=== PATIENT | male | born 1995 | race Caucasian/White ===

== ENCOUNTER 2023-09-06 20:39 | Emergency (ER) | payer MEDICARE, MEDICAID ==
[2023-09-06] MEDS ORDERED: Albuterol/Ipratropium 3.0-0.5 MG/3 ML Neb Soln NEB ONE (21:26)
[2023-09-06 21:27] LABS: BASOPHILS ABSOLUTE AUTO 0.1 K/mm3 (0.0-0.2); BASOPHILS PERCENT AUTO 0.3 % (0.0-1.0); EOSINOPHILS PERCENT AUTO 0.1 % (0.0-6.0); HEMATOCRIT 50.8 % (42.0-52.0); HEMOGLOBIN 17.6 gm/dl (14.0-18.0); IMMATURE GRAN ABSOLUTE AUTO 0.14 K/mm3 (0.00-0.05); IMMATURE GRAN PERCENT AUTO 0.8 % (0.0-0.4); LYMPHOCYTES ABSOLUTE AUTO 1.7 K/mm3 (1.0-4.8); LYMPHOCYTES PERCENT AUTO 9.3 % (24.0-44.0); MEAN CORPUSCULAR HEMOGLOBIN 29.4 pg (28.0-32.0); MEAN CORPUSCULAR HGB CONC 34.6 g/dl (32.0-36.0); MEAN CORPUSCULAR VOLUME 84.8 fl (83.0-99.0); MEAN PLATELET VOLUME 8.9 fl (9.4-12.4); MONOCYTES ABSOLUTE AUTO 1.4 K/mm3 (0.0-0.8); MONOCYTES PERCENT AUTO 7.4 % (0.0-8.0); NEUTROPHILS ABSOLUTE AUTO 15.3 K/mm3 (1.8-7.7); NEUTROPHILS PERCENT AUTO 82.1 % (41.0-71.0); PLATELET COUNT,PLT 314 K/mm3 (150-400); RED BLOOD CELL COUNT 5.99 M/mm3 (4.52-5.90); WHITE BLOOD CELL COUNT,WBC 18.63 K/mm3 (3.9-11.3)
[2023-09-06] MEDS ORDERED: levETIRAcetam 1,000 MG in Sodium Chloride 0.9% 100 ML IV ONE (21:29)
[2023-09-06] MEDS ORDERED: LORazepam 2 MG/ML SDV IVPUSH ONE (21:29)
[2023-09-06] MEDS ORDERED: Sodium Chloride 0.9% 1,000 ML IV SCH (21:30)
[2023-09-06 21:48] LABS: A/G RATIO 1.2 (1-2); ALBUMIN 4.6 g/dl (3.4-5.0); ANION GAP 19.5 (5-15); BILIRUBIN TOTAL 0.9 mg/dL (0.2-1.0); BUN/CREATININE RATIO 12.7 (14-18); CREATININE 1.1 mg/dL (0.7-1.3); EST CRCL DRUG DOSING (CG) 104.15 mL/min; POTASSIUM,K 4.5 mEq/L (3.5-5.1); PROTEIN TOTAL,TP 8.3 g/dl (6.4-8.2)
[2023-09-06 21:50] LABS: LACTIC ACID 1.1 mmol/L (0.4-2.0)
[2023-09-06] MEDS ORDERED: Albuterol 6.7 GM Inhaler INH ONE (22:39)
[2023-09-06 23:01] VITALS: BP 129/70
[2023-09-06 23:26] LABS: APPEARANCE,URINE CLEAR (Clear); BILIRUBIN,URINE NEGATIVE (Negative); COLOR,URINE YELLOW (Yellow); GLUCOSE,URINE NEGATIVE (Negative); KETONES,URINE 4+ (Negative); LEUKOCYTE ESTERASE,URINE NEGATIVE (Negative); NITRITE,URINE NEGATIVE (Negative); OCCULT BLOOD,URINE TRACE-INTACT (Negative); PROTEIN,URINE 1+ (Negative); UROBILINOGEN,URINE 0.2 (0.2-1.0)
[2023-09-06 23:35] LABS: BARBITURATE SCREEN,URINE NEGATIVE (CUTOFF=200); BENZODIAZEPINES SCREEN,URINE NEGATIVE (CUTOFF=150); BUPRENORPHINE SCREEN,URINE NEGATIVE (CUTOFF=10); METHADONE SCREEN, URINE NEGATIVE (CUT0FF=200); METHAMPHETAMINES SCREEN, URINE NEGATIVE (CUTOFF=500); OXYCODONE SCREEN,URINE NEGATIVE (CUT0FF=100); THC SCREEN,URINE 20 NG/ML PRESUMPTIVE POSITIVE (CUTOFF=50)
[2023-09-06 23:43] LABS: AMPHETAMINES SCREEN, URINE NEGATIVE (CUTOFF=500)
[2023-09-06 23:51] LABS: BACTERIA,URINE FEW /hpf (FEW); EPITHELIAL CELLS,URINE 0-5 /hpf (0-5); MUCUS,URINE FEW /hpf (FEW); RBC,URINE 0-5 /hpf (0-5); WBC,URINE 0-5 /hpf (0-5)
[2023-09-07 00:14] VITALS: PULSE 99
== END 2023-09-07 00:02 | disposition home or self-care (01) ==
LOC: JD.ED 20:39
DX: R56.9 Unspecified convulsions (principal); E86.0 Dehydration; Z91.011 Allergy to milk products
CPT/HCPCS: 36415; 70450; 71046; 80053; 80306; 80307; 81001; 82550; 83605; 83735; 85025; 93005; 94640; 96361; 96374; 96375; 99285; A9270; J1953; J2060; J3490; J7030; 99284; J7620-GY

== ENCOUNTER 2024-08-02 12:42 | Emergency (ER) | payer MEDICARE, MEDICAID ==
[2024-08-02 13:08] VITALS: PULSE 96
[2024-08-02 13:56] LABS: BASOPHILS ABSOLUTE AUTO 0.1 K/mm3 (0.0-0.2); BASOPHILS PERCENT AUTO 0.3 % (0.0-1.0); EOSINOPHILS PERCENT AUTO 0.2 % (0.0-6.0); HEMOGLOBIN 16.3 gm/dl (14.0-18.0); IMMATURE GRAN PERCENT AUTO 0.6 % (0.0-0.4); LYMPHOCYTES ABSOLUTE AUTO 1.7 K/mm3 (1.0-4.8); LYMPHOCYTES PERCENT AUTO 9.9 % (24.0-44.0); MEAN CORPUSCULAR HEMOGLOBIN 29.7 pg (28.0-32.0); MEAN CORPUSCULAR VOLUME 87.4 fl (83.0-99.0); MEAN PLATELET VOLUME 9.1 fl (9.4-12.4); MONOCYTES ABSOLUTE AUTO 1.8 K/mm3 (0.0-0.8); MONOCYTES PERCENT AUTO 10.5 % (0.0-8.0); NEUTROPHILS ABSOLUTE AUTO 13.3 K/mm3 (1.8-7.7); NEUTROPHILS PERCENT AUTO 78.5 % (41.0-71.0); PLATELET COUNT,PLT 280 K/mm3 (150-400); RED BLOOD CELL COUNT 5.49 M/mm3 (4.52-5.90); WHITE BLOOD CELL COUNT,WBC 16.93 K/mm3 (3.9-11.3)
[2024-08-02] MEDS: Sodium Chloride 0.9% 10 ML Syringe FLUSH PRN (14:03)
[2024-08-02] MEDS: Sodium Chloride 0.9% 1,000 ML IV SCH (14:03)
[2024-08-02 14:15] LABS: SLIDE REVIEW ABNORMAL SMEAR
[2024-08-02 14:37] LABS: A/G RATIO 1.2 (1-2); ALBUMIN 4.2 g/dl (3.4-5.0); ANION GAP 16.1 (5-15); C-REACTIVE PROTEIN 3.18 mg/dL (<0.30); CALCIUM 9.4 mg/dL (8.5-10.1); EST CRCL DRUG DOSING (CG) 115.16 mL/min; POTASSIUM,K 4.1 mEq/L (3.5-5.1); PROTEIN TOTAL,TP 7.6 g/dl (6.4-8.2); VALPROIC ACID 3.3 ug/mL (50.0-100.0)
[2024-08-02 15:48] LABS: CORONAVIRUS COVID-19 NAA NEGATIVE (NEGATIVE); INFLUENZA A NAA NEGATIVE (NEGATIVE); RESPIRATORY SYNCYTIAL VIR NAA NEGATIVE (NEGATIVE)
[2024-08-02 16:43] VITALS: BP 111/81
[2024-08-05 14:46] LABS: ZONISAMIDE 4 ug/mL (10-40)
== END 2024-08-02 16:16 | disposition home or self-care (01) ==
LOC: JD.ED 12:42
DX: R56.9 Unspecified convulsions (principal); Z91.011 Allergy to milk products
CPT/HCPCS: 0241U; 36415; 71045; 80053; 80164; 80203; 82140; 82550; 83605; 85025; 86140; 96360; 96361; 99284; J3490; J7030; 99283

== ENCOUNTER 2024-11-10 10:33 | Emergency (ER) | payer MEDICARE, MEDICAID ==
[2024-11-10] MEDS ORDERED: Sodium Chloride 0.9% 10 ML Syringe FLUSH PRN (10:37)
[2024-11-10] MEDS: LORazepam 2 MG/ML SDV IVPUSH ONE (10:47)
[2024-11-10] MEDS: Sodium Chloride 0.9% 1,000 ML IV SCH (11:04)
[2024-11-10] MEDS: LORazepam 2 MG/ML SDV ONE (11:10)
[2024-11-10 11:24] LABS: BASOPHILS ABSOLUTE AUTO 0.1 K/mm3 (0.0-0.2); BASOPHILS PERCENT AUTO 0.8 % (0.0-1.0); EOSINOPHILS ABSOLUTE AUTO 0.1 K/mm3 (0.0-0.4); EOSINOPHILS PERCENT AUTO 0.6 % (0.0-6.0); HEMATOCRIT 50.8 % (42.0-52.0); HEMOGLOBIN 16.8 gm/dl (14.0-18.0); IMMATURE GRAN ABSOLUTE AUTO 0.48 K/mm3 (0.00-0.05); IMMATURE GRAN PERCENT AUTO 3.1 % (0.0-0.4); LYMPHOCYTES ABSOLUTE AUTO 3.1 K/mm3 (1.0-4.8); LYMPHOCYTES PERCENT AUTO 19.9 % (24.0-44.0); MEAN CORPUSCULAR HEMOGLOBIN 28.6 pg (28.0-32.0); MEAN CORPUSCULAR HGB CONC 33.1 g/dl (32.0-36.0); MEAN CORPUSCULAR VOLUME 86.4 fl (83.0-99.0); MEAN PLATELET VOLUME 9.4 fl (9.4-12.4); MONOCYTES ABSOLUTE AUTO 0.9 K/mm3 (0.0-0.8); MONOCYTES PERCENT AUTO 5.5 % (0.0-8.0); NEUTROPHILS ABSOLUTE AUTO 10.8 K/mm3 (1.8-7.7); NEUTROPHILS PERCENT AUTO 70.1 % (41.0-71.0); PLATELET COUNT,PLT 309 K/mm3 (150-400); RED BLOOD CELL COUNT 5.88 M/mm3 (4.52-5.90); WHITE BLOOD CELL COUNT,WBC 15.34 K/mm3 (3.9-11.3)
[2024-11-10 11:42] LABS: A/G RATIO 1.1 (1-2); ALANINE AMINOTRANSFERASE,ALT 66 U/L (16-63); ALKALINE PHOSPHATASE 46 U/L (46-116); ANION GAP 22.3 (5-15); ASPARTATE AMNIOTRANSFERASE,AST 41 U/L (15-37); BILIRUBIN TOTAL 0.3 mg/dL (0.2-1.0); BLOOD UREA NITROGEN,BUN 13 mg/dL (7-18); BUN/CREATININE RATIO 10.8 (14-18); CALCIUM 8.8 mg/dL (8.5-10.1); CARBON DIOXIDE,CO2 17 mEq/L (21-32); CHLORIDE,CL 102 mEq/L (98-107); CREATININE 1.2 mg/dL (0.7-1.3); ESTIMATED GFR 84 mL/min (>60); GLUCOSE RANDOM 137 mg/dL (70-99); MAGNESIUM 2.8 mg/dL (1.8-2.4); PROTEIN TOTAL,TP 7.5 g/dl (6.4-8.2); SODIUM,NA 137 mEq/L (136-145)
[2024-11-10 11:48] LABS: POTASSIUM,K 4.3 mEq/L (3.5-5.1)
[2024-11-10] MEDS: Acetaminophen 325 MG Tab PO ONE (14:50)
[2024-11-10 16:28] VITALS: BP 126/78; PULSE 108
[2024-11-12 14:41] LABS: ZONISAMIDE <2 ug/mL (10-40)
== END 2024-11-10 14:55 | disposition home or self-care (01) ==
LOC: JD.ED 10:33
DX: R56.9 Unspecified convulsions (principal); S01.21XA Laceration without foreign body of nose, initial encounter; S01.81XA Laceration without foreign body of other part of head, initial encounter; F17.210 Nicotine dependence, cigarettes, uncomplicated; Z79.899 Other long term (current) drug therapy; Z91.011 Allergy to milk products; W01.198A Fall on same level from slipping, tripping and stumbling with subsequent striking against other object, initial encounter
CPT/HCPCS: 12011; 36415; 70450; 70486; 72125; 80053; 80164; 80203; 83735; 85025; 93005; 96361; 96374; 99285; A9270; J2060; J7030; 93010; 99284

== ENCOUNTER 2024-12-12 18:24 | Emergency (ER) | payer MEDICARE ==
[2024-12-12 18:44] VITALS: BP 133/71; PULSE 104
[2024-12-12 19:00] LABS: BASOPHILS ABSOLUTE AUTO 0.1 K/mm3 (0.0-0.2); BASOPHILS PERCENT AUTO 0.3 % (0.0-1.0); EOSINOPHILS ABSOLUTE AUTO 0.1 K/mm3 (0.0-0.4); EOSINOPHILS PERCENT AUTO 0.5 % (0.0-6.0); HEMATOCRIT 52.4 % (42.0-52.0); HEMOGLOBIN 17.7 gm/dl (14.0-18.0); IMMATURE GRAN ABSOLUTE AUTO 0.49 K/mm3 (0.00-0.05); IMMATURE GRAN PERCENT AUTO 2.1 % (0.0-0.4); LYMPHOCYTES ABSOLUTE AUTO 0.8 K/mm3 (1.0-4.8); LYMPHOCYTES PERCENT AUTO 3.3 % (24.0-44.0); MEAN CORPUSCULAR HEMOGLOBIN 28.8 pg (28.0-32.0); MEAN CORPUSCULAR HGB CONC 33.8 g/dl (32.0-36.0); MEAN CORPUSCULAR VOLUME 85.3 fl (83.0-99.0); MEAN PLATELET VOLUME 9.4 fl (9.4-12.4); MONOCYTES ABSOLUTE AUTO 1.1 K/mm3 (0.0-0.8); MONOCYTES PERCENT AUTO 4.9 % (0.0-8.0); NEUTROPHILS ABSOLUTE AUTO 20.5 K/mm3 (1.8-7.7); NEUTROPHILS PERCENT AUTO 88.9 % (41.0-71.0); PLATELET COUNT,PLT 277 K/mm3 (150-400); RED BLOOD CELL COUNT 6.14 M/mm3 (4.52-5.90); WHITE BLOOD CELL COUNT,WBC 23.07 K/mm3 (3.9-11.3)
[2024-12-12 19:27] LABS: A/G RATIO 1.1 (1-2); ALANINE AMINOTRANSFERASE,ALT 58 U/L (16-63); ALBUMIN 4.1 g/dl (3.4-5.0); ALKALINE PHOSPHATASE 46 U/L (46-116); ANION GAP 15.2 (5-15); ASPARTATE AMNIOTRANSFERASE,AST 34 U/L (15-37); BILIRUBIN TOTAL 0.5 mg/dL (0.2-1.0); BLOOD UREA NITROGEN,BUN 8 mg/dL (7-18); BUN/CREATININE RATIO 7.3 (14-18); CALCIUM 8.9 mg/dL (8.5-10.1); CARBON DIOXIDE,CO2 24 mEq/L (21-32); CHLORIDE,CL 102 mEq/L (98-107); CREATININE 1.1 mg/dL (0.7-1.3); ESTIMATED GFR 94 mL/min (>60); GLUCOSE RANDOM 96 mg/dL (70-99); PROTEIN TOTAL,TP 7.7 g/dl (6.4-8.2); SODIUM,NA 137 mEq/L (136-145)
[2024-12-12 19:36] LABS: POTASSIUM,K 4.2 mEq/L (3.5-5.1)
[2024-12-12] MEDS: Sodium Chloride 0.9% 1,000 ML IV ONE (20:14)
[2024-12-12] MEDS: LORazepam 2 MG/ML SDV IVPUSH ONE (20:15)
[2024-12-12] MEDS: LORazepam 2 MG/ML SDV ONE (20:34)
[2024-12-12] MEDS: LORazepam 2 MG/ML SDV IM ONE ×2 (20:34→22:37)
== END 2024-12-13 00:50 | disposition home or self-care (01) ==
LOC: JD.ED 18:24
DX: R56.9 Unspecified convulsions (principal); Z79.899 Other long term (current) drug therapy; Z91.048 Other nonmedicinal substance allergy status
CPT/HCPCS: 36415; 71045; 80053; 82947; 83605; 85025; 87428; 96372; 96374; 99284; J2060; J7030; 99283

== ENCOUNTER 2025-01-08 12:00 | Emergency (ER) | payer MEDICARE ==
[2025-01-08 12:26] LABS: APPEARANCE,URINE CLEAR (Clear); BILIRUBIN,URINE NEGATIVE (Negative); COLOR,URINE YELLOW (Yellow); GLUCOSE,URINE NEGATIVE (Negative); KETONES,URINE NEGATIVE (Negative); LEUKOCYTE ESTERASE,URINE NEGATIVE (Negative); NITRITE,URINE NEGATIVE (Negative); OCCULT BLOOD,URINE 2+ (Negative); PH,URINE 5.5 (5.0-8.0); PROTEIN,URINE 1+ (Negative); UROBILINOGEN,URINE 0.2 (0.2-1.0)
[2025-01-08 12:35] LABS: BARBITURATE SCREEN,URINE NEGATIVE (CUTOFF=200); BENZODIAZEPINES SCREEN,URINE PRESUMPTIVE POSITIVE (CUTOFF=150); BUPRENORPHINE SCREEN,URINE NEGATIVE (CUTOFF=10); METHADONE SCREEN, URINE NEGATIVE (CUT0FF=200); METHAMPHETAMINES SCREEN, URINE NEGATIVE (CUTOFF=500); OXYCODONE SCREEN,URINE NEGATIVE (CUT0FF=100); RBC,URINE 0-5 /hpf (0-5); THC SCREEN,URINE 20 NG/ML PRESUMPTIVE POSITIVE (CUTOFF=50); WBC,URINE 0-5 /hpf (0-5)
[2025-01-08 12:36] LABS: BACTERIA,URINE FEW /hpf (FEW); EPITHELIAL CELLS,URINE 0-5 /hpf (0-5); HYALINE CASTS,URINE 0-5 /lpf (0-5); MUCUS,URINE FEW /hpf (FEW)
[2025-01-08 12:38] LABS: BASOPHILS ABSOLUTE AUTO 0.1 K/mm3 (0.0-0.2); BASOPHILS PERCENT AUTO 0.5 % (0.0-1.0); EOSINOPHILS PERCENT AUTO 0.2 % (0.0-6.0); HEMATOCRIT 51.2 % (42.0-52.0); HEMOGLOBIN 16.9 gm/dl (14.0-18.0); IMMATURE GRAN PERCENT AUTO 2.4 % (0.0-0.4); LYMPHOCYTES ABSOLUTE AUTO 1.3 K/mm3 (1.0-4.8); LYMPHOCYTES PERCENT AUTO 6.3 % (24.0-44.0); MEAN CORPUSCULAR HEMOGLOBIN 28.3 pg (28.0-32.0); MEAN CORPUSCULAR VOLUME 85.6 fl (83.0-99.0); MEAN PLATELET VOLUME 9.3 fl (9.4-12.4); MONOCYTES ABSOLUTE AUTO 1.3 K/mm3 (0.0-0.8); MONOCYTES PERCENT AUTO 6.3 % (0.0-8.0); NEUTROPHILS ABSOLUTE AUTO 17.5 K/mm3 (1.8-7.7); NEUTROPHILS PERCENT AUTO 84.3 % (41.0-71.0); PLATELET COUNT,PLT 297 K/mm3 (150-400); RED BLOOD CELL COUNT 5.98 M/mm3 (4.52-5.90); WHITE BLOOD CELL COUNT,WBC 20.72 K/mm3 (3.9-11.3)
[2025-01-08 13:06] LABS: AMPHETAMINES SCREEN, URINE NEGATIVE (CUTOFF=500)
[2025-01-08 13:16] LABS: A/G RATIO 1.2 (1-2); ANION GAP 15.3 (5-15); BILIRUBIN TOTAL 0.3 mg/dL (0.2-1.0); CREATININE 1.1 mg/dL (0.7-1.3); EST CRCL DRUG DOSING (CG) 96.73 mL/min; POTASSIUM,K 5.3 mEq/L (3.5-5.1); PROTEIN TOTAL,TP 7.4 g/dl (6.4-8.2)
[2025-01-08] MEDS: Sodium Chloride 0.9% 1,000 ML IV ONE (13:25)
[2025-01-08 14:29] VITALS: BP 127/98; PULSE 87
== END 2025-01-08 14:15 | disposition home or self-care (01) ==
LOC: JD.ED 12:00
DX: R56.9 Unspecified convulsions (principal); F17.210 Nicotine dependence, cigarettes, uncomplicated; Z91.011 Allergy to milk products; Z79.899 Other long term (current) drug therapy
CPT/HCPCS: 36415; 80053; 80164; 80306; 81001; 83605; 85025; 96360; 99284; J7030; 99283

== ENCOUNTER 2025-01-08 16:42 | Emergency (ER) | payer MEDICARE ==
[2025-01-08] MEDS: LORazepam 0.5 MG Tab PO ONE (16:57)
[2025-01-08] MEDS: Valproate Sodium 500 MG in Sodium Chloride 0.9% 100 ML IV ONE (17:26)
[2025-01-08 19:03] VITALS: BP 142/89; PULSE 68
== END 2025-01-08 18:50 | disposition home or self-care (01) ==
LOC: JD.ED 16:42
DX: R56.9 Unspecified convulsions (principal); Z79.899 Other long term (current) drug therapy; Z91.011 Allergy to milk products
CPT/HCPCS: 96365; 99283; A9270; 99284; J3490

== ENCOUNTER 2025-03-17 15:39 | Emergency (ER) | payer MEDICARE ==
[2025-03-17] MEDS ORDERED: LORazepam 2 MG/ML SDV IM ONE (15:54)
[2025-03-17] MEDS: Ondansetron 4 MG/2 ML SDV IVPUSH ONE (16:27)
[2025-03-17] MEDS: LORazepam 2 MG/ML SDV IVPUSH ONE ×2 (16:29→16:32)
[2025-03-17] MEDS: LORazepam 2 MG/ML SDV ONE (16:29)
[2025-03-17] MEDS: Sodium Chloride 0.9% 1,000 ML IV ONE (16:30)
[2025-03-17 16:54] LABS: BASOPHILS ABSOLUTE AUTO 0.1 K/mm3 (0.0-0.2); BASOPHILS PERCENT AUTO 0.4 % (0.0-1.0); HEMATOCRIT 48.7 % (42.0-52.0); HEMOGLOBIN 16.3 gm/dl (14.0-18.0); IMMATURE GRAN ABSOLUTE AUTO 0.68 K/mm3 (0.00-0.05); IMMATURE GRAN PERCENT AUTO 3.1 % (0.0-0.4); LYMPHOCYTES ABSOLUTE AUTO 0.7 K/mm3 (1.0-4.8); LYMPHOCYTES PERCENT AUTO 3.4 % (24.0-44.0); MEAN CORPUSCULAR HEMOGLOBIN 29.7 pg (28.0-32.0); MEAN CORPUSCULAR HGB CONC 33.5 g/dl (32.0-36.0); MEAN CORPUSCULAR VOLUME 88.7 fl (83.0-99.0); MEAN PLATELET VOLUME 9.2 fl (9.4-12.4); MONOCYTES ABSOLUTE AUTO 1.4 K/mm3 (0.0-0.8); MONOCYTES PERCENT AUTO 6.4 % (0.0-8.0); NEUTROPHILS PERCENT AUTO 86.7 % (41.0-71.0); PLATELET COUNT,PLT 230 K/mm3 (150-400); RED BLOOD CELL COUNT 5.49 M/mm3 (4.52-5.90); WHITE BLOOD CELL COUNT,WBC 21.94 K/mm3 (3.9-11.3)
[2025-03-17 17:04] LABS: BARBITURATE SCREEN,URINE NEGATIVE (CUTOFF=200); BENZODIAZEPINES SCREEN,URINE PRESUMPTIVE POSITIVE (CUTOFF=150); BUPRENORPHINE SCREEN,URINE NEGATIVE (CUTOFF=10); METHADONE SCREEN, URINE NEGATIVE (CUT0FF=200); METHAMPHETAMINES SCREEN, URINE NEGATIVE (CUTOFF=500); OXYCODONE SCREEN,URINE NEGATIVE (CUT0FF=100); THC SCREEN,URINE 20 NG/ML PRESUMPTIVE POSITIVE (CUTOFF=50)
[2025-03-17 17:18] LABS: A/G RATIO 1.1 (1-2); ALBUMIN 3.6 g/dl (3.4-5.0); ANION GAP 13.5 (5-15); BILIRUBIN TOTAL 0.5 mg/dL (0.2-1.0); BUN/CREATININE RATIO 13.3 (14-18); CALCIUM 8.6 mg/dL (8.5-10.1); CREATININE 0.9 mg/dL (0.7-1.3); EST CRCL DRUG DOSING (CG) 134.12 mL/min; MAGNESIUM 2.1 mg/dL (1.8-2.4); POTASSIUM,K 4.5 mEq/L (3.5-5.1); PROTEIN TOTAL,TP 6.9 g/dl (6.4-8.2)
[2025-03-17 17:21] LABS: AMPHETAMINES SCREEN, URINE NEGATIVE (CUTOFF=500)
[2025-03-17 19:21] VITALS: BP 123/84; PULSE 117
== END 2025-03-17 19:00 | disposition home or self-care (01) ==
LOC: JD.ED 15:39
DX: F41.9 Anxiety disorder, unspecified (principal); G40.909 Epilepsy, unspecified, not intractable, without status epilepticus; R79.89 Other specified abnormal findings of blood chemistry; D72.829 Elevated white blood cell count, unspecified; Z91.011 Allergy to milk products; Z79.899 Other long term (current) drug therapy
CPT/HCPCS: 36415; 80053; 80306; 80307; 82550; 82947; 83690; 83735; 84484; 85025; 93005; 96374; 96375; 99284; J2060; J2405; J7030; 93010

== ENCOUNTER 2025-04-13 10:01 | Emergency (ER) | payer MEDICARE ==
[~2025-04-13 10:01] MED LIST: Etomidate 2 MG/ML 20 ML SDV ONE
[2025-04-13] MEDS ORDERED: Sodium Chloride 0.9% 10 ML Syringe FLUSH PRN (10:17)
[2025-04-13 10:44] LABS: BASOPHILS ABSOLUTE AUTO 0.1 K/mm3 (0.0-0.2); BASOPHILS PERCENT AUTO 0.5 % (0.0-1.0); EOSINOPHILS ABSOLUTE AUTO 0.1 K/mm3 (0.0-0.4); EOSINOPHILS PERCENT AUTO 0.4 % (0.0-6.0); IMMATURE GRAN ABSOLUTE AUTO 0.68 K/mm3 (0.00-0.05); IMMATURE GRAN PERCENT AUTO 3.6 % (0.0-0.4); LYMPHOCYTES ABSOLUTE AUTO 1.0 K/mm3 (1.0-4.8); LYMPHOCYTES PERCENT AUTO 5.4 % (24.0-44.0); MEAN PLATELET VOLUME 9.5 fl (9.4-12.4); MONOCYTES ABSOLUTE AUTO 1.3 K/mm3 (0.0-0.8); MONOCYTES PERCENT AUTO 6.9 % (0.0-8.0); NEUTROPHILS ABSOLUTE AUTO 15.8 K/mm3 (1.8-7.7); NEUTROPHILS PERCENT AUTO 83.2 % (41.0-71.0); NRBC ABSOLUTE 0.00 (0.00-0.02); NRBC PERCENT 0.0 % (0.0-0.2); PLATELET COUNT,PLT 255 K/mm3 (150-400); RED BLOOD CELL COUNT 6.18 M/mm3 (4.52-5.90); WHITE BLOOD CELL COUNT,WBC 19.03 K/mm3 (3.9-11.3)
[2025-04-13 11:12] LABS: A/G RATIO 1.2 (1-2); ALANINE AMINOTRANSFERASE,ALT 75.0 U/L (16-63); ASPARTATE AMNIOTRANSFERASE,AST 42.0 U/L (15-37); BILIRUBIN TOTAL 0.4 mg/dL (0.2-1.0); BLOOD UREA NITROGEN,BUN 16.0 mg/dL (7-18); CARBON DIOXIDE,CO2 23.0 mEq/L (21-32); CHLORIDE,CL 105.0 mEq/L (98-107); CREATININE 1.0 mg/dL (0.7-1.3); EST CRCL DRUG DOSING (CG) 106.4 mL/min; ESTIMATED GFR 105.0 mL/min (>60); GLUCOSE RANDOM 122.0 mg/dL (70-99); PHOSPHORUS 1.9 mg/dL (2.6-4.7); POTASSIUM,K 4.0 mEq/L (3.5-5.1); PROTEIN TOTAL,TP 7.1 g/dl (6.4-8.2); SODIUM,NA 139.0 mEq/L (136-145); TSH 2.383 uIU/mL (0.358-3.74)
[2025-04-13] MEDS: LORazepam 2 MG/ML SDV IVPUSH ONE ×4 (11:20→11:38)
[2025-04-13 11:25] LABS: ETHANOL BLOOD MEDICAL 0.0 gm% (0.00); LACTIC ACID 2.8 mmol/L (0.4-2.0)
[2025-04-13] MEDS: propofoL 1,000 MG/100 ML 100 ML IV SCH (12:15)
[2025-04-13] MEDS: LORazepam 2 MG/ML SDV ONE ×3 (12:17→12:18)
[2025-04-13] MEDS: propofoL 1,000 MG/100 ML 100 ML ONE (12:19)
[2025-04-13 12:38] LABS: APPEARANCE,URINE CLEAR (Clear); GLUCOSE,URINE NEGATIVE (Negative); OCCULT BLOOD,URINE TRACE-INTACT (Negative)
[2025-04-13 12:48] LABS: BUPRENORPHINE SCREEN,URINE NEGATIVE (CUTOFF=10); METHADONE SCREEN, URINE NEGATIVE (CUT0FF=200); METHAMPHETAMINES SCREEN, URINE NEGATIVE (CUTOFF=500); OXYCODONE SCREEN,URINE NEGATIVE (CUT0FF=100); THC SCREEN,URINE 20 NG/ML PRESUMPTIVE POSITIVE (CUTOFF=50)
[2025-04-13 12:49] LABS: EPITHELIAL CELLS,URINE 0-5 /hpf (0-5)
[2025-04-13 12:50] LABS: AMPHETAMINES SCREEN, URINE NEGATIVE (CUTOFF=500)
[2025-04-13 13:08] LABS: BASE EXCESS VENOUS -22.7 (-4.0-2.0); BICARBONATE,VENOUS 9.5 meq/L (22-26); O2 SATURATION VENOUS 100; PCO2 VENOUS 43.0 mmHg (41-51); PH,VENOUS 6.95 (7.30-7.40); PO2 VENOUS 183.0 mmHG (40-80)
[2025-04-13 18:05] VITALS: BP 160/90; PULSE 112
== END 2025-04-13 14:00 ==
LOC: JD.ED 10:01
DX: G40.901 Epilepsy, unspecified, not intractable, with status epilepticus (principal); Z93.0 Tracheostomy status; Z91.011 Allergy to milk products; Z79.899 Other long term (current) drug therapy
CPT/HCPCS: 31500; 36415; 71045; 80053; 80164; 80306; 80307; 81001; 82803; 82947; 83605; 83735; 84100; 84443; 85025; 87040; 96361; 96365; 96366; 96367; 96375; 99291; 99292; J0696; J1953; J2060; J2250; J2704; J3490; J7030; 93010

== ENCOUNTER 2025-07-04 16:48 | Emergency (ER) | payer MEDICARE, MEDICAID ==
[2025-07-04 17:01] VITALS: BP 122/83; PULSE 99
[2025-07-04] MEDS ORDERED: Sodium Chloride 0.9% 10 ML Syringe FLUSH PRN (17:21)
[2025-07-04] MEDS: LORazepam 2 MG/ML SDV IVPUSH ONE ×2 (17:29→20:27)
[2025-07-04 19:00] LABS: BASOPHILS ABSOLUTE AUTO 0.2 K/mm3 (0.0-0.2); BASOPHILS PERCENT AUTO 0.7 % (0.0-1.0); EOSINOPHILS ABSOLUTE AUTO 0.0 K/mm3 (0.0-0.4); EOSINOPHILS PERCENT AUTO 0.1 % (0.0-6.0); IMMATURE GRAN ABSOLUTE AUTO 0.62 K/mm3 (0.00-0.05); IMMATURE GRAN PERCENT AUTO 2.7 % (0.0-0.4); LYMPHOCYTES ABSOLUTE AUTO 1.1 K/mm3 (1.0-4.8); LYMPHOCYTES PERCENT AUTO 4.8 % (24.0-44.0); MEAN PLATELET VOLUME 9.1 fl (9.4-12.4); MONOCYTES ABSOLUTE AUTO 1.5 K/mm3 (0.0-0.8); MONOCYTES PERCENT AUTO 6.3 % (0.0-8.0); NEUTROPHILS ABSOLUTE AUTO 20.0 K/mm3 (1.8-7.7); NEUTROPHILS PERCENT AUTO 85.4 % (41.0-71.0); NRBC ABSOLUTE 0.00 (0.00-0.02); NRBC PERCENT 0.0 % (0.0-0.2); PLATELET COUNT,PLT 228 K/mm3 (150-400); RED BLOOD CELL COUNT 6.24 M/mm3 (4.52-5.90); WHITE BLOOD CELL COUNT,WBC 23.33 K/mm3 (3.9-11.3)
[2025-07-04 19:36] LABS: A/G RATIO 1.0 (1-2); ALANINE AMINOTRANSFERASE,ALT 78 U/L (16-63); ASPARTATE AMNIOTRANSFERASE,AST 47 U/L (15-37); BILIRUBIN TOTAL 0.4 mg/dL (0.2-1.0); BLOOD UREA NITROGEN,BUN 13 mg/dL (7-18); CARBON DIOXIDE,CO2 28 mEq/L (21-32); CHLORIDE,CL 103 mEq/L (98-107); CREATININE 1.1 mg/dL (0.7-1.3); ESTIMATED GFR 93 mL/min (>60); GLUCOSE RANDOM 107 mg/dL (70-99); POTASSIUM,K 4.2 mEq/L (3.5-5.1); PROTEIN TOTAL,TP 8.3 g/dl (6.4-8.2); SODIUM,NA 139 mEq/L (136-145)
[2025-07-04] MEDS: Divalproex Sodium Delayed-Release 500 MG Tab.CR PO ONE (20:55)
== END 2025-07-04 21:20 | disposition home or self-care (01) ==
LOC: JD.ED 16:48
DX: G40.909 Epilepsy, unspecified, not intractable, without status epilepticus (principal); E86.0 Dehydration; E87.20 Acidosis, unspecified; J45.909 Unspecified asthma, uncomplicated; Z79.899 Other long term (current) drug therapy; Z91.011 Allergy to milk products
CPT/HCPCS: 36415; 80053; 80164; 80203; 83605; 83735; 85025; 96374; 96376; 99284; A9270; J2060; J7030

== ENCOUNTER 2025-08-02 07:47 | Emergency (ER) | payer MEDICARE, MEDICAID ==
[2025-08-02] MEDS: LORazepam 2 MG/ML SDV IVPUSH STA (08:19)
[2025-08-02] MEDS: Ondansetron 4 MG/2 ML SDV IV STA (08:19)
[2025-08-02 08:29] LABS: BASOPHILS ABSOLUTE AUTO 0.1 K/mm3 (0.0-0.2); BASOPHILS PERCENT AUTO 0.7 % (0.0-1.0); EOSINOPHILS ABSOLUTE AUTO 0.2 K/mm3 (0.0-0.4); EOSINOPHILS PERCENT AUTO 1.1 % (0.0-6.0); IMMATURE GRAN ABSOLUTE AUTO 0.34 K/mm3 (0.00-0.05); IMMATURE GRAN PERCENT AUTO 2.1 % (0.0-0.4); LYMPHOCYTES ABSOLUTE AUTO 1.8 K/mm3 (1.0-4.8); LYMPHOCYTES PERCENT AUTO 11.3 % (24.0-44.0); MEAN PLATELET VOLUME 8.9 fl (9.4-12.4); MONOCYTES ABSOLUTE AUTO 0.6 K/mm3 (0.0-0.8); MONOCYTES PERCENT AUTO 3.7 % (0.0-8.0); NEUTROPHILS ABSOLUTE AUTO 12.9 K/mm3 (1.8-7.7); NEUTROPHILS PERCENT AUTO 81.1 % (41.0-71.0); NRBC ABSOLUTE 0.00 (0.00-0.02); NRBC PERCENT 0.0 % (0.0-0.2); PLATELET COUNT,PLT 264 K/mm3 (150-400); RED BLOOD CELL COUNT 6.29 M/mm3 (4.52-5.90); WHITE BLOOD CELL COUNT,WBC 15.88 K/mm3 (3.9-11.3)
[2025-08-02 08:58] LABS: A/G RATIO 1.1 (1-2); ALANINE AMINOTRANSFERASE,ALT 57.0 U/L (16-63); ASPARTATE AMNIOTRANSFERASE,AST 31.0 U/L (15-37); BILIRUBIN TOTAL 0.5 mg/dL (0.2-1.0); BLOOD UREA NITROGEN,BUN 10.0 mg/dL (7-18); CARBON DIOXIDE,CO2 21.0 mEq/L (21-32); CHLORIDE,CL 105.0 mEq/L (98-107); CREATINE KINASE,CK 228.0 U/L (39-308); CREATININE 1.1 mg/dL (0.7-1.3); EST CRCL DRUG DOSING (CG) 102.31 mL/min; ESTIMATED GFR 93.0 mL/min (>60); GLUCOSE RANDOM 166.0 mg/dL (70-99); POTASSIUM,K 4.5 mEq/L (3.5-5.1); PROTEIN TOTAL,TP 7.7 g/dl (6.4-8.2); SODIUM,NA 141.0 mEq/L (136-145); VALPROIC ACID 81.7 ug/mL (50.0-100.0)
[2025-08-02 10:04] VITALS: BP 122/79; PULSE 100
== END 2025-08-02 09:55 | disposition home or self-care (01) ==
LOC: JD.ED 07:47
DX: G40.909 Epilepsy, unspecified, not intractable, without status epilepticus (principal); S00.532A Contusion of oral cavity, initial encounter; E86.9 Volume depletion, unspecified; B34.9 Viral infection, unspecified; Z91.0110 Allergy to milk products, unspecified; Z79.899 Other long term (current) drug therapy; X58.XXXA Exposure to other specified factors, initial encounter
CPT/HCPCS: 36415; 80053; 80164; 82550; 83735; 85025; 87428; 96361; 96374; 96375; 99284; J2060; J2405; J7030; 99283